=== PATIENT | female | born 1990 | race Caucasian/White ===

== ENCOUNTER 2022-12-09 13:05 | Emergency (ER) | payer MEDICAID ==
[~2022-12-09] VITALS: Ht 170.2 cm; Wt 72.0 kg
[2022-12-09 15:40] VITALS: BP 113/61
== END 2022-12-09 15:42 | disposition home or self-care (01) ==
LOC: EDBD 13:05 → ER 13:05
DX: O26.892 Other specified pregnancy related conditions, second trimester (principal); R10.31 Right lower quadrant pain; E03.9 Hypothyroidism, unspecified; V49.9XXA Car occupant (driver) (passenger) injured in unspecified traffic accident, initial encounter; Y93.89 Activity, other specified; Y92.89 Other specified places as the place of occurrence of the external cause; Y99.8 Other external cause status; Z3A.18 18 weeks gestation of pregnancy
CPT/HCPCS: 76805